=== PATIENT | female | born 1985 | race Caucasian/White ===

== ENCOUNTER 2017-03-02 05:33 | Observation (INO) | payer OTHER ==
[2017-02-25 09:09] VITALS: BMI 26.0
--- NOTE | 2017-02-25 09:28 | PAT Medication Instructions ---
Service Date Feb 25, 2017. Current Home Medication List Levothyroxine Sodium (Levothyroxine Sodium), 1 TAB PO QAM Multivitamin (Multivitamin), 1 TAB PO QAM Vitamin B Cmplx/Vitc/Folic Ac (Nephrocaps), 1 CAP PO QAM [Chromium], 1 TAB PO QAM Medication Instructions For Your Scheduled Surgery - Hold the following medications the morning of surgery: Multivitamin (Multivitamin), 1 TAB PO QAM Vitamin B Cmplx/Vitc/Folic Ac (Nephrocaps), 1 CAP PO QAM [Chromium], 1 TAB PO QAM - Take the following medications the morning of surgery with a sip of water: Levothyroxine Sodium (Levothyroxine Sodium), 1 TAB PO QAM If you have any questions please call us at [phone] or [phone] or [phone]
[2017-02-25 10:21] LABS: BASO % 1.3 %; BASO ABS # 0.05 K/uL (0-0.2); COMPLETE YES; EOS % 6.1 %; HEMATOCRIT 42.8 % (37-47); LYMPH % 38.2 %; LYMPH ABS # 1.45 K/uL (1.2-3.4); MEAN CELL VOLUME 94.7 fL (80-100); MEAN CORPUSCULAR HEMOGLOBIN 31.6 pg (25-34); MEAN CORPUSCULAR HGB CONC 33.4 g/dl (32-36); MEAN PLATELET VOLUME 11.4 fL (7.4-10.4); MONO % 6.8 %; NEUT % 47.6 %; PLATELET COUNT 199 K/uL (130-400); RED BLOOD COUNT 4.52 M/uL (4.2-5.4)
[2017-02-25 10:32] LABS: PARTIAL THROMBOPLASTIN RATIO 1.1; PROTHROMBIN TIME (PATIENT) 10.7 SECONDS (9.0-12.0)
[2017-02-25 10:53] LABS: BUN/CREATININE RATIO 19.3 (10-20); CALCIUM 9.1 mg/dl (8.5-10.1); CREATININE 0.81 mg/dl (0.60-1.20); POTASSIUM 4.3 mmol/L (3.5-5.1)
[2017-03-02] VITALS (8 sets, daily range): BP systolic 99–113; BP diastolic 63–73; PULSE 63–83; TEMP 36.4–37.2; O2SAT 95–100; Ht 165.1 cm; Wt 71.4 kg
[~2017-03-02] VITALS: Ht 165.1 cm; Wt 71.4 kg
[~2017-03-02 05:33] MED LIST: B-CO1CAP17 PO; CHROMIUM PO; LEVO50TA6 PO; MULT-506 PO
[2017-03-02] MEDS ORDERED: CLR10 PO (05:58)
[2017-03-02] MEDS ORDERED: LACTATED RINGER'S 1000ML 1,000 ML IV SCH (06:00)
[2017-03-02] MEDS ORDERED: CEFAZOLIN 2000 MG/60 ML D5W IV SCH (06:00)
[2017-03-02] MEDS ORDERED: SCOPOLAMINE 1.5 MG TDSY TD ONE ×3 (06:48→07:08)
[2017-03-02] MEDS ORDERED: LIDOCAINE/EPINEPHRINE 1% 20 ML VIAL ONE (06:54)
[2017-03-02] MEDS ORDERED: LIDOCAINE HCL 1% 20 ML VIAL ONE (06:54)
[2017-03-02] MEDS ORDERED: EpINEphrine INJ 1MG/ML AMP 1 MG/ML AMP ONE (06:55)
[2017-03-02] MEDS ORDERED: BUPIVACAINE 0.5 % 5 MG/1 ML MPF 30ML VIAL ONE (06:55)
--- NOTE | 2017-03-02 06:55 | History & Physical Bridge Note ---
H&P Re-Evaluation Bridge Note: I have examined the patient, reviewed the History & Physical and in the interval since the performance of the History & Physical I have noted the following changes of clinical significance: No changes noted
[2017-03-02] MEDS ORDERED: MIDAZOLAM HCL 1 MG/ML 2ML VIAL ONE (06:58)
[2017-03-02] MEDS ORDERED: HYDROmorphone INJ 2 MG/ML SYR/VIAL ONE (06:59)
[2017-03-02] MEDS ORDERED: FENTANYL CITRATE INJ 50 MCG/1 ML 2 ML VIAL ONE (06:59)
[2017-03-02] MEDS ORDERED: ONDANSETRON INJ 2 MG/ML 2 ML VIAL IV PRN ×2 (07:00→10:15)
[2017-03-02] MEDS ORDERED: HYDROmorphone INJ 1 MG/ML SYR IV PRN (07:00)
[2017-03-02] MEDS ORDERED: ATROPINE SULFATE 0.1 MG/ML 5ML SYR IV PRN (07:00)
[2017-03-02] MEDS ORDERED: FENTANYL CITRATE INJ 50 MCG/1 ML 2 ML VIAL IV PRN (07:00)
[2017-03-02] MEDS ORDERED: EpHEDrine SULFATE INJ 50 MG/ML AMP IV PRN (07:00)
[2017-03-02] MEDS ORDERED: ACETAMINOPHEN 1000 MG/100 ML IV IV ONE (07:08)
[2017-03-02] MEDS ORDERED: ONDANSETRON INJ 2 MG/ML 2 ML VIAL ONE ×2 (07:36→07:52)
[2017-03-02] MEDS ORDERED: LIDOCAINE HCL 2% 2 ML VIAL (20MG/ML) ONE (07:52)
[2017-03-02] MEDS ORDERED: NEOSTIGMINE METHYLSULFATE 5 MG/5 ML SYR ONE (07:52)
[2017-03-02] MEDS ORDERED: GLYCOPYRROLATE INJ 0.2 MG/ML VIAL ONE (07:52)
[2017-03-02] MEDS ORDERED: PROPOFOL IV EMULSION 10 MG/ML 20 ML VIAL IV ONE (07:52)
--- NOTE | 2017-03-02 09:55 | [facility] Post Operative Brief Note ---
Immediate Operative Summary Operative Date Mar 02, 2017. Pre-Operative Diagnosis Abdominal panniculus, symptomatic Post-Operative Diagnosis Same as preoperative diagnosis Procedure(s) Performed Panniculectomy Surgeon Dr. Shanelle Gaspar Assistant Corporation Counsel Surgeon(s) Elisabet Ashley PA-C Estimated Blood Loss 25 mL Findings rectus diastasis Specimens Permanent specimens A: Left abdominal panniculus B: Right abdominal panniculus Drains ALPHONSO x2 Anesthesia general Complication(s) None
--- NOTE | 2017-03-02 10:12 | Discharge Instructions ---
Discharge Instructions Date of Service Mar 02, 2017. Admission Reason for Admission: Abdominal Pannus Discharge Discharge Diagnosis / Problem: abdominal pannus Discharge Goals Goal(s): Decrease discomfort Activity Recommendations Activity Limitations: per Instructions/Follow-up section ACTIVITY RECOMMENDATIONS: __Normal activities _x_No bending, lifting or straining __No driving __Driving allowed when you are off pain medications _x_Walking permitted __You should have help at home for ___ days DRESSINGS: __No dressings required _x_Keep dressings dry/in place until first office visit __Remove dressings ___ and leave dressings off __Apply ice ___ days __Remove dressings and reapply garment __Apply antibiotic ointment (Bacitracin, Neosporin, etc) to wounds 3-4 times/ day for 10 days BATHING: _x_Keep dressings dry _x_Sponge bathing permitted __Showering permitted _x_No swimming, hot tubs or soaking in a tub MEDICATIONS: Resume previous medications unless instructed otherwise by your surgeon. _x_Do not use aspirin, Motrin, Advil or Ibuprofen as these may promote bleeding. Please use Tylenol. _x_Prescription(s) provided: pain medication was provided at your last office visit OTHER INSTRUCTIONS: _x_Record drain output 2-3 times per day. Call the office when output is less than 10mL/24 hours SPECIAL CARE INSTRUCTIONS: * It is normal to have a mild fever after surgery. If your temperature is higher than 101.5 degrees F, please call the office at [phone]. * Constipation is a typical side effect of pain medication. An over-the- counter stool softener will help relieve this. * Leaking around surgical drains may occur and should not cause concern. Sometimes these drains become clogged. If this happens, remove the bulb and milk the clot out of the tube, then replace the bulb. * Drainage from wounds after liposuction is normal and should be expected. Garments will become soiled. You should protect furniture and bedding. This drainage should mostly subside within 2-3 days. Leave garments in place unless instructed to remove them. * If you have unusual drainage from a wound or are concerned you have an infection or have any questions or concerns, please call the office at [phone]. FOLLOW UP VISIT: If not already scheduled, please call the office, , when you return home after surgery to schedule an appointment to be seen in __1_ days. . Current Hospital Diet Patient's current hospital diet: Regular Diet Discharge Diet Recommended Diet: Regular Diet Procedures Procedures Performed: Panniculectomy Pending Studies Studies pending at discharge: yes List of pending studies: pathology Medical Emergencies . Who to Call and When: Medical Emergencies: If at any time you feel your situation is an emergency, please call 911 immediately. . Non-Emergent Contact Non-Emergency issues call your: Primary Care Provider, Surgeon . "Provider Documentation" section prepared by Elisabet Ashley. . VTE Core Measure Inpt VTE Proph given/why not?: SCD's [place] Drug Monitoring Program Search Results: no issues identified
[2017-03-02] MEDS ORDERED: OXAZEPAM 10MG CAP PO PRN (10:15)
[2017-03-02] MEDS ORDERED: MoRPHine SULFATE 2 MG/ML CARP IV PRN ×2 (10:15)
[2017-03-02] MEDS ORDERED: DiphenhydrAMINE HCL 50 MG/ML VIAL IV PRN (10:15)
[2017-03-02] MEDS ORDERED: ACETAMINOPHEN 325 MG TAB PO PRN (10:15)
[2017-03-02] MEDS ORDERED: MoRPHine SULFATE 4 MG/ML 1 ML CARP\\VIAL IV PRN (10:15)
[2017-03-02] MEDS ORDERED: PROMETHAZINE HCL INJ 12.5 MG in SODIUM CHLORIDE 0.9% 50ML 50 ML IV PRN (10:15)
--- NOTE | 2017-03-02 11:11 | Anesthesiology Progress Note ---
Anesthesia Post Op Note Date & Time Mar 02, 2017 at 11:11 Vital Signs Pain Intensity: 2 Vital Signs Past 12 Hours Date Time Temp Pulse Resp B/P (MAP) Pulse Ox O2 Delivery O2 Flow Rate FiO2 03/02/17 10:55 36.5 03/02/17 10:51 123/63 03/02/17 10:50 55 15 03/02/17 10:50 56 15 100 03/02/17 10:47 132/72 03/02/17 10:45 52 13 100 03/02/17 10:45 54 13 03/02/17 10:41 126/77 03/02/17 10:40 52 19 03/02/17 10:40 53 19 100 03/02/17 10:36 119/70 03/02/17 10:35 67 16 03/02/17 10:35 66 16 100 03/02/17 10:31 110/74 03/02/17 10:30 59 19 03/02/17 10:30 59 19 99 03/02/17 10:26 105/59 03/02/17 10:25 56 16 03/02/17 10:25 55 16 99 03/02/17 10:20 57 18 03/02/17 10:20 57 18 100 03/02/17 10:17 110/78 03/02/17 10:15 69 20 03/02/17 10:15 65 20 100 03/02/17 10:12 99/53 03/02/17 10:10 50 18 03/02/17 10:10 50 18 91/56 98 03/02/17 10:05 36.5 59 16 91/49 100 Mask 10 03/02/17 05:47 36.8 65 18 109/63 (78) 99 Room Air Notes Mental Status: alert / awake / arousable, participated in evaluation Pt Amnestic to Procedure: Yes Nausea / Vomiting: adequately controlled Pain: adequately controlled Airway Patency, RR, SpO2: stable & adequate BP & HR: stable & adequate Hydration State: stable & adequate Anesthetic Complications: no major complications apparent
[2017-03-02] MEDS ORDERED: IV FLUIDS COMPLETED PRN (12:30)
[2017-03-02] MEDS: LACTATED RINGER'S 1000ML 1,000 ML IV SCH ×2 (12:39→22:24)
[2017-03-02] MEDS: OXYCODONE/ACETAMINOPHEN 5-325 TAB PO PRN ×2 (13:56→19:51)
[2017-03-02] MEDS: CEFAZOLIN IV 2,000 MG in DEXTROSE 5% 50ML 50 ML IV SCH (17:01)
[2017-03-03] MEDS: CEFAZOLIN IV 2,000 MG in DEXTROSE 5% 50ML 50 ML IV SCH (00:52)
[2017-03-03 03:58] VITALS: BP 97/62; PULSE 80; TEMP 37.2; O2SAT 97
[2017-03-03] MEDS: OXYCODONE/ACETAMINOPHEN 5-325 TAB PO PRN ×2 (05:28→11:55)
[2017-03-03 07:03] VITALS: BP 105/71; PULSE 72; TEMP 36.8; O2SAT 96
--- NOTE | 2017-03-03 08:17 | Anesthesiology Progress Note ---
Anesthesia Post Op Note Date & Time Mar 03, 2017 at 08:17 Vital Signs Pain Intensity: 5.0 Vital Signs Past 12 Hours Date Time Temp Pulse Resp B/P (MAP) Pulse Ox O2 Delivery O2 Flow Rate FiO2 03/03/17 07:03 36.8 72 18 105/71 (82) 96 Room Air 03/03/17 03:58 37.2 80 16 97/62 (74) 97 Room Air 03/02/17 23:15 Room Air 03/02/17 22:45 37.2 64 16 99/63 (75) 96 Room Air Notes Mental Status: alert / awake / arousable, participated in evaluation Pt Amnestic to Procedure: Yes Nausea / Vomiting: adequately controlled Pain: adequately controlled Airway Patency, RR, SpO2: stable & adequate BP & HR: stable & adequate Hydration State: stable & adequate Anesthetic Complications: no major complications apparent
[2017-03-03] MEDS ORDERED: MULTIVITAMIN TAB PO SCH (09:00)
[2017-03-03 09:18] LABS: MEAN CELL VOLUME 95.9 fL (80-100); MEAN CORPUSCULAR HEMOGLOBIN 30.6 pg (25-34); MEAN CORPUSCULAR HGB CONC 31.9 g/dl (32-36); MEAN PLATELET VOLUME 11.2 fL (7.4-10.4); PLATELET COUNT 203 K/uL (130-400); RED BLOOD COUNT 4.38 M/uL (4.2-5.4); WHITE BLOOD COUNT 7.97 K/uL (4.8-10.8)
[2017-03-03 09:30] LABS: PROTHROMBIN TIME (PATIENT) 10.9 SECONDS (9.0-12.0)
[2017-03-03 09:43] LABS: BUN/CREATININE RATIO 15.7 (10-20); CALCIUM 8.8 mg/dl (8.5-10.1); CREATININE 0.79 mg/dl (0.60-1.20)
[2017-03-03 10:03] LABS: BASO % 0.4 %; BASO ABS # 0.03 K/uL (0-0.2); COMPLETE YES; IG% 0.3 %; LYMPH % 8.9 %; LYMPH ABS # 0.71 K/uL (1.2-3.4); MONO % 6.1 %; NEUT % 83.3 %
[2017-03-03] MEDS: LACTATED RINGER'S 1000ML 1,000 ML IV SCH (10:45)
--- NOTE | 2017-03-03 11:14 | Surgery Progress Note ---
Surgery Progress Note Date of Service Mar 03, 2017. Subjective Post OP Day: 1 + feeling well, + ambulating, + pain controlled, No complaints Objective Vital Signs: Date Time Temp Pulse Resp B/P (MAP) Pulse Ox O2 Delivery O2 Flow Rate FiO2 03/03/17 08:00 Room Air 03/03/17 07:03 36.8 72 18 105/71 (82) 96 Room Air 03/03/17 03:58 37.2 80 16 97/62 (74) 97 Room Air 03/02/17 23:15 Room Air 03/02/17 22:45 37.2 64 16 99/63 (75) 96 Room Air 03/02/17 19:42 36.8 65 16 100/65 (77) 96 Room Air 03/02/17 19:21 Room Air 03/02/17 14:59 36.7 83 18 100/63 (75) 96 Room Air 03/02/17 14:00 67 18 108/73 (85) 95 03/02/17 13:00 36.4 63 18 111/66 (81) 95 Room Air 03/02/17 12:30 36.4 67 16 113/72 (86) 100 Nasal Cannula 2.0 03/02/17 12:00 100 Nasal Cannula 2.0 03/02/17 12:00 100 Nasal Cannula 2.0 03/02/17 12:00 36.8 67 16 110/73 (85) 100 Nasal Cannula 2.0 03/02/17 11:46 60 18 116/70 100 03/02/17 11:46 60 18 03/02/17 11:42 110/74 03/02/17 11:41 57 11 03/02/17 11:41 57 11 100 03/02/17 11:36 56 19 03/02/17 11:36 56 19 118/75 100 03/02/17 11:31 56 16 109/68 100 03/02/17 11:31 57 16 03/02/17 11:26 50 15 03/02/17 11:26 49 15 106/59 100 03/02/17 11:21 54 15 113/58 100 03/02/17 11:21 53 15 03/02/17 11:16 57 17 104/72 100 03/02/17 11:16 57 17 Physical Exam: ALPHONSO drainage (bloody/serous) General Appearance: WD/WN, no apparent distress Abdomen: non tender, non distended, soft Incision(s): clean, dry, intact, no erythema Laboratory Results: Results Past 24 Hours Test 03/03/17 08:49 Range/Units White Blood Count 7.97 4.8-10.8 K/uL Red Blood Count 4.38 4.2-5.4 M/uL Hemoglobin 13.4 12.0-16.0 g/dL Hematocrit 42.0 37-47 % Mean Corpuscular Volume 95.9 80-100 fL Mean Corpuscular Hemoglobin 30.6 25-34 pg Mean Corpuscular Hemoglobin Concent 31.9 32-36 g/dl Platelet Count 203 130-400 K/uL Mean Platelet Volume 11.2 7.4-10.4 fL Neutrophils (%) (Auto) 83.3 % Lymphocytes (%) (Auto) 8.9 % Monocytes (%) (Auto) 6.1 % Eosinophils (%) (Auto) 1.0 % Basophils (%) (Auto) 0.4 % Neutrophils # (Auto) 6.64 1.4-6.5 K/uL Lymphocytes # (Auto) 0.71 1.2-3.4 K/uL Monocytes # (Auto) 0.49 0.11-0.59 K/uL Eosinophils # (Auto) 0.08 0-0.5 K/uL Basophils # (Auto) 0.03 0-0.2 K/uL RDW Standard Deviation 44.5 36.4-46.3 fL RDW Coefficient of Variation 12.8 11.5-14.5 % Immature Granulocyte % (Auto) 0.3 % Immature Granulocyte # (Auto) 0.02 0.00-0.02 K/uL Prothrombin Time 10.9 9.0-12.0 SECONDS Prothromb Time International Ratio 1.0 0.9-1.1 Activated Partial Thromboplast Time 25.1 21.0-31.0 SECONDS Partial Thromboplastin Ratio 1.0 Sodium Level 139 136-145 mmol/L Potassium Level 4.0 3.5-5.1 mmol/L Chloride Level 106 98-107 mmol/L Carbon Dioxide Level 29 21-32 mmol/L Anion Gap 4.0 3-11 mmol/L Blood Urea Nitrogen 12 7-18 mg/dl Creatinine 0.79 0.60-1.20 mg/dl Est Creatinine Clear Calc Drug Dose 100.4 ml/min Estimated GFR () 114.0 Estimated GFR (Non- 98.4 BUN/Creatinine Ratio 15.7 10-20 Random Glucose 101 70-99 mg/dl Calcium Level 8.8 8.5-10.1 mg/dl Assessment & Plan s/p panniculectomy 1. doing well POD #1- d/c home today. Post-op instructions were reviewed with the patient. She will follow-up in office tomorrow
[2017-03-03 12:05] VITALS: BP 105/71; PULSE 72; TEMP 36.8; O2SAT 96
--- NOTE | 2017-03-03 16:08 | Discharge Summary ---
Discharge Summary Date of Service Mar 03, 2017. Admission Date/Reason Mar 02, 2017 at 11:03 Abdominal Pannus. Discharge Date/Disposition Mar 03, 2017 Home Diagnosis Principal Diagnosis: abdominal pannus Procedure(s) Performed panniculectomy Medication Reconciliation Continued Medications: Levothyroxine Sodium (Levothyroxine Sodium) 50 Mcg Tab 1 TAB PO QAM for 90 Days, #90 TAB 3 Refills Loratadine (Claritin) 10 Mg Tab 10 MG PO DAILY, TAB Multivitamin (Multivitamin) Tab 1 TAB PO QAM, TAB Vitamin B Cmplx/Vitc/Folic Ac (Nephrocaps) Cap 1 CAP PO QAM, CAP [Chromium] () 1 TAB PO QAM Admission Physical Exam As per Admitting History & Physical. Hospital Course Patient presented to [facility] with history of abdominal pannus. She was taken to the OR and underwent panniculectomy. There were no intraoperative complications. Two ALPHONSO drains were placed. She was taken to recovery and admitted for observation to med/surg. On POD#1 the patient was tolerating a regular diet and ambulating in the halls. Her pain was controlled. On exam, her VSS, incision CDI and drains had serous and bloody output. She was discharged home in stable condition with instructions to follow-up in the office. Discharge Instructions Please refer to the electronic Patient Visit Report (Discharge Instructions) for additional information.
--- NOTE | 2017-03-05 09:12 | [facility] Operative Report ---
Operative Report Operative Date Mar 05, 2017. Pre-Operative Diagnosis Abdominal panniculus, symptomatic Post-Operative Diagnosis Same as preoperative diagnosis Procedure(s) Performed Panniculectomy Surgeon Dr. Shanelle Gaspar Carburetor Specialist Surgeon(s) Elisabet Ashley PA-C Estimated Blood Loss 25 mL Findings rectus diastasis Specimens Permanent specimens A: Left abdominal panniculus B: Right abdominal panniculus Drains ALPHONSO x2 Anesthesia general Complication(s) None Disposition Recovery Room / PACU Indications Patient is a 31-year-old female who presented to my office with concerns of excess skin of her abdomen as result of multiple pregnancies including twin , as well as massive weight loss. Excess skin causes rashes and obscures genitalia. She had a rectus diastasis noted on exam, and we discussed repair of this in order to improve her cosmetic result, however, she declined this option due to [id number] cost. Description of Procedure The risks benefits and alternatives of procedure were explained to the patient green site consent. We specifically discussed possibility of rectus plication, and she understood that this would not be covered by insurance and degenerated [id number] cost, so she declined. She was identified and marked in the preoperative holding area and brought to the operating room where she was positioned supine was arranged without incident. Perez catheter was inserted. Surgical site was prepped and draped sterilely. Time-out procedure was performed. Planned incision was reassessed. Inferior-most aspect of this incision was located 7 centimeters above the vulvar commissure in the midline. Incision was marked from iliac crest to iliac crest. 1 percent lidocaine with epinephrine was used to anesthetize the planned incision. A 15 blade scalpel made the skin incision with the incision being deepened through dermis, subcutaneous fat, Riri's fascia down to abdominal fascia using electrocautery. The abdominal skin flap was raised from the rectus fascia using electrocautery toward the level of the umbilicus. Due to significant amount of excess skin above the umbilicus as well, I circumscribed the umbilicus using 15 blade scalpel and dissected out using electrocautery. Dissection was then carried about another 6 centimeters superiorly to release the superior skin fold. Hemostasis was achieved throughout using electrocautery. rectus diastasis was noted, without evidence of umbilical or ventral hernia. This point the bed was flexed and the superior skin flap was advanced in the midline and tacked into place using 2-0 Vicryl suture. Skin flaps were marked for excision. Fifteen blade scalpel used to make a skin incision and the incision was deepened through underlying subcutaneous tissue and Riri's fascia using electrocautery. Hemostasis was again achieved with electrocautery. After removal of the skin flaps, the position of the ross umbilicus was marked. Two fifteen [place]ogol[place] Vince drains were brought through separate stab incisions. 0.25 percent Marcaine plain was used to anesthetize the rectus fascia. Wound closure was begun in a lateral to medial direction using 2-0 Vicryl Riri's fascia sutures, 2-0 Vicryl deep dermal sutures, 2-0 PDO running superficial dermal Quill suture. 3-0 Monocryl running subcuticular suture was placed. Umbilical incision was made using 15 blade scalpel and dissected through until the umbilical stalk was identified. Umbilical stalk was brought out through the incision. I did have to perform plication of the umbilical stalk due to long umbilical stalk with short umbilical bowl. This was performed at the time of inset using 4-0 chromic half buried horizontal mattress sutures grabbing a bit of umbilical stalk with each suture. Dermabond perennial was applied to the incisions. Umbilicus was packed using Xeroform. Dressings were placed followed by an abdominal binder. Patient was awakened and transferred to recovery in satisfactory condition. Elisabet Ashley PA-C was present and scrubbed throughout the entire procedure and was instrumental in providing retraction during dissection and assisting in simultaneous wound closure. I attest to the content of the Intraoperative Record and any orders documented therein. Any exceptions are noted below.
== END 2017-03-03 13:06 | disposition home or self-care (01) ==
LOC: C.ACU 05:33 → C.MSN 11:03 → ENRESERV 11:33
PROVIDERS: ADMIT Plastic Surgery; ATTEND Plastic Surgery
DX: E65 Localized adiposity (principal); M62.08 Separation of muscle (nontraumatic), other site; E03.9 Hypothyroidism, unspecified